=== PATIENT | male | born 2000 | race Two or more races ===

== ENCOUNTER 2023-07-31 18:01 | Emergency (ER) | payer OTHER ==
[~2023-07-31] VITALS: Ht 182.9 cm; Wt 100.8 kg
[2023-07-31 18:36] VITALS: BP 135/96; PULSE 89; RESP 17; O2SAT 98
== END 2023-07-31 23:42 | disposition left against medical advice (07) ==
LOC: ER 18:01
DX: M25.531 Pain in right wrist (principal); Z53.21 Procedure and treatment not carried out due to patient leaving prior to being seen by health care provider
CPT/HCPCS: 73110